=== PATIENT | female | born 1945 | race American Indian/Alaskan Native ===

== ENCOUNTER 2018-01-30 19:03 | Inpatient (IN) | payer MEDICARE ==
[~2018-01-30] VITALS: Ht 157.5 cm; Wt 80.0 kg
[~2018-01-30 19:03] MED LIST: ALBU90OI INH; ASPI81EC PO; CITA10S PO; HYDGUAL120 PO; IBUP800 PO; LISHYD2025 PO; PRED20 PO; RXSULTRIDS PO; SULTRIDS PO
[2018-01-30 20:33] LABS: Hemoglobin 18.6 g/dL (11.5-16.0); Mean Corpuscular HGB 34.8 pg (26.0-34.0); Mean Corpuscular HGB Conc 34.4 g/dL (31.5-36.5); Mean Corpuscular Volume 101 fL (80-100); Platelet Count 110 K/mm3 (150-400); RDW Coefficient Variation 13.2 % (11.7-14.2); RDW Standard Deviation 49.2 fL (35.1-46.3); Red Blood Cell Count 5.34 M/mm3 (3.80-5.20); White Blood Cell Count 8.95 K/mm3 (4.00-11.30)
[2018-01-30 20:52] LABS: Alanine Aminotransfer (ALT/SGP 12 U/L (12-78); Albumin, Blood 3.6 g/dL (3.4-5.0); Albumin/Globulin Ratio 1.2 (0.8-1.8); Alk Phos 86 U/L (50-136); Anion Gap 7 mmol/L (6-16); Aspartate Aminotrans (AST/SGOT 21 U/L (12-37); Blood Urea Nitrogen 18 mg/dL (8-24); CO2, Blood 29 mmol/L (21-32); Calcium, Blood 8.6 mg/dL (8.5-10.1); Chloride, Blood 99 mmol/L (98-108); Creatinine, Blood 0.51 mg/dL (0.40-1.00); Glomerular Filtration Rate >60 (60-); Glucose, Blood 107 mg/dL (70-99); Potassium, Blood 4.2 mmol/L (3.5-5.5); Sodium, Blood 135 mmol/L (136-145); Total Protein, Blood 6.6 g/dL (6.4-8.2)
[2018-01-30 21:00] LABS: BAND PERCENT MAN 14 % (0-8); BASOPHILS PERCENT MAN 0 % (0-2); EOSINOPHILS ABSOLUTE MAN 0.08 K/mm3 (0.00-0.68); EOSINOPHILS PERCENT MAN 1 % (0-6); LYMPHOCYTES ABSOLUTE MAN 0.35 K/mm3 (0.84-5.20); LYMPHOCYTES PERCENT MAN 4 % (21-46); MONOCYTES ABSOLUTE MAN 0.17 K/mm3 (0.16-1.47); MONOCYTES PERCENT MAN 2 % (4-13); NEUTROPHILS ABSOLUTE MAN 8.32 K/mm3 (1.96-9.15); SEG NEUTROPHILS PERCENT MAN 79 % (41-73); TOTAL CELLS COUNTED 100
[2018-01-30 21:24] LABS: International Normalized Ratio 1.02; Prothrombin Time Results 10.5 Sec (9.7-11.5)
[2018-01-31 00:38] LABS: Source, Urine Catheter
[2018-01-31 00:41] LABS: Bilirubin, Urine Neg (Neg); Blood, Urine 1+ (Neg); Glucose Qualitative, Urine Neg (Neg); Ketones, Urine 1+ (Neg); Leukocyte Esterase, Urine 2+ (Neg); Nitrite, Urine Pos (Neg); Protein, Urine 1+ (Neg); Urobilinogen, Urine 2+ (Normal)
[2018-01-31 00:51] LABS: Appearance, Urine Hazy (Clear); Bacteria Many /hpf; Color, Urine Yellow (P-Yellow); Red Blood Cells, Urine Rare /hpf (0-2); Squamous Epithelial Cells Rare /hpf (Few); White Blood Cells, Urine 25-50 /hpf (0-5)
[2018-01-31 04:07] LABS: BASOPHILS ABSOLUTE AUTO 0.01 K/mm3 (0.00-0.23); BASOPHILS PERCENT AUTO 0 % (0-2); EOSINOPHILS PERCENT AUTO 0 % (0-6); Hemoglobin 18.2 g/dL (11.5-16.0); IMMATURE GRAN ABSOLUTE AUTO 0.02 K/mm3 (0.00-0.10); IMMATURE GRAN PERCENT AUTO 0 % (0-1); LYMPHOCYTES ABSOLUTE AUTO 0.61 K/mm3 (0.84-5.20); LYMPHOCYTES PERCENT AUTO 10 % (21-46); MONOCYTES ABSOLUTE AUTO 0.27 K/mm3 (0.16-1.47); MONOCYTES PERCENT AUTO 4 % (4-13); Mean Corpuscular HGB 34.4 pg (26.0-34.0); Mean Corpuscular HGB Conc 33.7 g/dL (31.5-36.5); Mean Corpuscular Volume 102 fL (80-100); Mean Platelet Volume 9.8 fL (9.1-12.4); NEUTROPHILS ABSOLUTE AUTO 5.21 K/mm3 (1.96-9.15); NEUTROPHILS PERCENT AUTO 85 % (41-73); Platelet Count 112 K/mm3 (150-400); RDW Standard Deviation 49.3 fL (35.1-46.3); Red Blood Cell Count 5.29 M/mm3 (3.80-5.20); White Blood Cell Count 6.12 K/mm3 (4.00-11.30)
[2018-01-31 04:27] LABS: Anion Gap 9 mmol/L (6-16); Blood Urea Nitrogen 17 mg/dL (8-24); Bun/Creatinine Ratio 33.1 (12.0-20.0); CO2, Blood 28 mmol/L (21-32); Calcium, Blood 8.3 mg/dL (8.5-10.1); Chloride, Blood 100 mmol/L (98-108); Creatinine, Blood 0.51 mg/dL (0.40-1.00); Glomerular Filtration Rate >60 (60-); Glucose, Blood 109 mg/dL (70-99); Potassium, Blood 4.1 mmol/L (3.5-5.5); Sodium, Blood 137 mmol/L (136-145)
[2018-01-31 13:22] LABS: Hematocrit 54.9 % (33.0-51.0); Hemoglobin 18.3 g/dL (11.5-16.0)
[2018-02-01 04:41] LABS: BASOPHILS ABSOLUTE AUTO 0.01 K/mm3 (0.00-0.23); BASOPHILS PERCENT AUTO 0 % (0-2); EOSINOPHILS ABSOLUTE AUTO 0.06 K/mm3 (0.00-0.68); EOSINOPHILS PERCENT AUTO 1 % (0-6); Hematocrit 40.7 % (33.0-51.0); Hemoglobin 13.4 g/dL (11.5-16.0); IMMATURE GRAN ABSOLUTE AUTO 0.02 K/mm3 (0.00-0.10); IMMATURE GRAN PERCENT AUTO 0 % (0-1); LYMPHOCYTES ABSOLUTE AUTO 1.27 K/mm3 (0.84-5.20); LYMPHOCYTES PERCENT AUTO 19 % (21-46); MONOCYTES ABSOLUTE AUTO 0.49 K/mm3 (0.16-1.47); MONOCYTES PERCENT AUTO 8 % (4-13); Mean Corpuscular HGB 34.9 pg (26.0-34.0); Mean Corpuscular HGB Conc 32.9 g/dL (31.5-36.5); Mean Platelet Volume 9.7 fL (9.1-12.4); NEUTROPHILS ABSOLUTE AUTO 4.69 K/mm3 (1.96-9.15); NEUTROPHILS PERCENT AUTO 72 % (41-73); Platelet Count 92 K/mm3 (150-400); RDW Coefficient Variation 13.3 % (11.7-14.2); Red Blood Cell Count 3.84 M/mm3 (3.80-5.20); White Blood Cell Count 6.54 K/mm3 (4.00-11.30)
[2018-02-01 04:43] LABS: Mean Corpuscular Volume 106 fL (80-100)
[2018-02-01 04:58] LABS: Anion Gap 5 mmol/L (6-16); Blood Urea Nitrogen 15 mg/dL (8-24); Bun/Creatinine Ratio 25.4 (12.0-20.0); CO2, Blood 30 mmol/L (21-32); Calcium, Blood 7.6 mg/dL (8.5-10.1); Chloride, Blood 104 mmol/L (98-108); Creatinine, Blood 0.59 mg/dL (0.40-1.00); Glomerular Filtration Rate >60 (60-); Glucose, Blood 104 mg/dL (70-99); Potassium, Blood 4.3 mmol/L (3.5-5.5); Sodium, Blood 139 mmol/L (136-145)
[2018-02-01 08:17] LABS: PCO2 Arterial 61.1 mmHg (35-45); PO2 Arterial 77.3 mmHg (80-100); pH Blood Arterial 7.32 (7.35-7.45)
[2018-02-02 07:07] LABS: BASOPHILS ABSOLUTE AUTO 0.02 K/mm3 (0.00-0.23); BASOPHILS PERCENT AUTO 0 % (0-2); EOSINOPHILS ABSOLUTE AUTO 0.13 K/mm3 (0.00-0.68); EOSINOPHILS PERCENT AUTO 3 % (0-6); Hematocrit 38.7 % (33.0-51.0); IMMATURE GRAN ABSOLUTE AUTO 0.02 K/mm3 (0.00-0.10); IMMATURE GRAN PERCENT AUTO 0 % (0-1); LYMPHOCYTES ABSOLUTE AUTO 0.99 K/mm3 (0.84-5.20); LYMPHOCYTES PERCENT AUTO 20 % (21-46); MONOCYTES ABSOLUTE AUTO 0.43 K/mm3 (0.16-1.47); MONOCYTES PERCENT AUTO 9 % (4-13); Mean Corpuscular HGB 34.9 pg (26.0-34.0); Mean Corpuscular HGB Conc 33.6 g/dL (31.5-36.5); Mean Corpuscular Volume 104 fL (80-100); Mean Platelet Volume 9.9 fL (9.1-12.4); NEUTROPHILS ABSOLUTE AUTO 3.47 K/mm3 (1.96-9.15); NEUTROPHILS PERCENT AUTO 69 % (41-73); Platelet Count 97 K/mm3 (150-400); RDW Coefficient Variation 12.9 % (11.7-14.2); RDW Standard Deviation 49.6 fL (35.1-46.3); Red Blood Cell Count 3.72 M/mm3 (3.80-5.20); White Blood Cell Count 5.06 K/mm3 (4.00-11.30)
[2018-02-02 07:16] LABS: Anion Gap 5 mmol/L (6-16); Blood Urea Nitrogen 10 mg/dL (8-24); Bun/Creatinine Ratio 20.3 (12.0-20.0); CO2, Blood 32 mmol/L (21-32); Calcium, Blood 8.1 mg/dL (8.5-10.1); Chloride, Blood 101 mmol/L (98-108); Creatinine, Blood 0.49 mg/dL (0.40-1.00); Glomerular Filtration Rate >60 (60-); Glucose, Blood 89 mg/dL (70-99); Potassium, Blood 4.1 mmol/L (3.5-5.5); Sodium, Blood 138 mmol/L (136-145)
[2018-02-03 04:21] LABS: BASOPHILS ABSOLUTE AUTO 0.01 K/mm3 (0.00-0.23); BASOPHILS PERCENT AUTO 0 % (0-2); EOSINOPHILS ABSOLUTE AUTO 0.22 K/mm3 (0.00-0.68); EOSINOPHILS PERCENT AUTO 5 % (0-6); Hematocrit 35.9 % (33.0-51.0); Hemoglobin 11.9 g/dL (11.5-16.0); IMMATURE GRAN ABSOLUTE AUTO 0.01 K/mm3 (0.00-0.10); IMMATURE GRAN PERCENT AUTO 0 % (0-1); LYMPHOCYTES ABSOLUTE AUTO 0.86 K/mm3 (0.84-5.20); LYMPHOCYTES PERCENT AUTO 18 % (21-46); MONOCYTES ABSOLUTE AUTO 0.45 K/mm3 (0.16-1.47); MONOCYTES PERCENT AUTO 9 % (4-13); Mean Corpuscular HGB 34.7 pg (26.0-34.0); Mean Corpuscular HGB Conc 33.1 g/dL (31.5-36.5); Mean Corpuscular Volume 105 fL (80-100); Mean Platelet Volume 9.4 fL (9.1-12.4); NEUTROPHILS ABSOLUTE AUTO 3.34 K/mm3 (1.96-9.15); NEUTROPHILS PERCENT AUTO 68 % (41-73); Platelet Count 104 K/mm3 (150-400); RDW Coefficient Variation 12.8 % (11.7-14.2); RDW Standard Deviation 49.2 fL (35.1-46.3); Red Blood Cell Count 3.43 M/mm3 (3.80-5.20); White Blood Cell Count 4.89 K/mm3 (4.00-11.30)
[2018-02-03 04:53] LABS: Anion Gap 3 mmol/L (6-16); Blood Urea Nitrogen 10 mg/dL (8-24); Bun/Creatinine Ratio 21.4 (12.0-20.0); CO2, Blood 36 mmol/L (21-32); Calcium, Blood 8.1 mg/dL (8.5-10.1); Chloride, Blood 98 mmol/L (98-108); Creatinine, Blood 0.47 mg/dL (0.40-1.00); Glomerular Filtration Rate >60 (60-); Glucose, Blood 125 mg/dL (70-99); Potassium, Blood 3.8 mmol/L (3.5-5.5); Sodium, Blood 137 mmol/L (136-145)
== END 2018-02-03 16:01 | disposition home or self-care (01) | DRG 470 ==
LOC: ER 19:03 → SURS 22:49
PROVIDERS: Emergency Medicine; Internal Medicine; Orthopaedic Surgery
PROC: 0SRB049 Replacement of Left Hip Joint with Ceramic on Polyethylene Synthetic Substitute, Cemented, Open Approach (ICD-10-PCS; principal; 2018-01-31 13:30)
DX: S72.012A Unspecified intracapsular fracture of left femur, initial encounter for closed fracture (principal); W18.09XA Striking against other object with subsequent fall, initial encounter; I10 Essential (primary) hypertension; L40.9 Psoriasis, unspecified; D75.1 Secondary polycythemia; F32.9 Major depressive disorder, single episode, unspecified; D69.6 Thrombocytopenia, unspecified; M19.049 Primary osteoarthritis, unspecified hand; M19.019 Primary osteoarthritis, unspecified shoulder; M47.9 Spondylosis, unspecified; R09.02 Hypoxemia; F17.200 Nicotine dependence, unspecified, uncomplicated; Z88.5 Allergy status to narcotic agent; Z79.1 Long term (current) use of non-steroidal anti-inflammatories (NSAID); Z79.82 Long term (current) use of aspirin; Z79.899 Other long term (current) drug therapy
CPT/HCPCS: 36415; 36600; 71045; 71046; 72170; 73502; 80048; 80053; 81001; 82803; 85014; 85018; 85025; 85610; 86850; 86900; 86901; 87077; 87086; 87186; 93005; 93010; 93971; 94640; 94760; 94761; 94762; 96361; 96374; 96375; 97110; 97116; 97161; 97530; 99285-25; C1713; C1776; G8978; G8979; J0171; J0690; J0735; J1644; J1885; J2250; J2370; J2405; J2795; J3010; J7030; J7120

== ENCOUNTER 2019-01-12 19:45 | Emergency (ER) | payer OTHER ==
[~2019-01-12] VITALS: Ht 162.6 cm; Wt 68.0 kg
[2019-01-12] MEDS ORDERED: Norco 5-325 Ta1 EACH PO (21:01)
== END 2019-01-12 21:13 | disposition home or self-care (01) ==
LOC: ER 19:45
DX: S42.251A Displaced fracture of greater tuberosity of right humerus, initial encounter for closed fracture (principal); S42.211A Unspecified displaced fracture of surgical neck of right humerus, initial encounter for closed fracture; W18.42XA Slipping, tripping and stumbling without falling due to stepping into hole or opening, initial encounter; Z88.5 Allergy status to narcotic agent; Z79.899 Other long term (current) drug therapy; Z79.82 Long term (current) use of aspirin; I10 Essential (primary) hypertension; F32.9 Major depressive disorder, single episode, unspecified; F17.200 Nicotine dependence, unspecified, uncomplicated
CPT/HCPCS: 29105; 73030; 99283-25; A9270

== ENCOUNTER 2020-10-05 21:29 | Inpatient (IN) | payer MEDICARE, OTHER ==
[~2020-10-05] VITALS: Ht 152.4 cm; Wt 72.9 kg
[~2020-10-05 21:29] MED LIST changes: +Norco 5-325 Ta1 EACH PO
[2020-10-05] MEDS ORDERED: LOSA25 PO (21:49)
[2020-10-05 22:35] LABS: BASOPHILS ABSOLUTE AUTO 0.03 K/mm3 (0.00-0.23); BASOPHILS PERCENT AUTO 0 % (0-2); EOSINOPHILS ABSOLUTE AUTO 0.07 K/mm3 (0.00-0.68); EOSINOPHILS PERCENT AUTO 1 % (0-6); Hematocrit 49.7 % (33.0-51.0); Hemoglobin 16.7 g/dL (11.5-16.0); IMMATURE GRAN ABSOLUTE AUTO 0.05 K/mm3 (0.00-0.10); IMMATURE GRAN PERCENT AUTO 0 % (0-1); LYMPHOCYTES PERCENT AUTO 10 % (21-46); MONOCYTES ABSOLUTE AUTO 0.67 K/mm3 (0.16-1.47); MONOCYTES PERCENT AUTO 6 % (4-13); Mean Corpuscular HGB 33.8 pg (26.0-34.0); Mean Corpuscular HGB Conc 33.6 g/dL (31.5-36.5); Mean Corpuscular Volume 101 fL (80-100); Mean Platelet Volume 9.4 fL (9.1-12.4); NEUTROPHILS ABSOLUTE AUTO 9.62 K/mm3 (1.96-9.15); NEUTROPHILS PERCENT AUTO 83 % (41-73); Platelet Count 143 K/mm3 (150-400); RDW Coefficient Variation 13.2 % (11.7-14.2); Red Blood Cell Count 4.94 M/mm3 (3.80-5.20); White Blood Cell Count 11.54 K/mm3 (4.00-11.30)
[2020-10-05 22:51] LABS: Alanine Aminotransfer (ALT/SGP 14 U/L (12-78); Albumin, Blood 3.5 g/dL (3.4-5.0); Albumin/Globulin Ratio 1.1 (0.8-1.8); Alk Phos 80 U/L (50-136); Anion Gap 3 mmol/L (6-16); Aspartate Aminotrans (AST/SGOT 15 U/L (12-37); Bilirubin, Total 0.5 mg/dL (0.1-1.0); Blood Urea Nitrogen 20 mg/dL (8-24); CO2, Blood 33 mmol/L (21-32); Calcium, Blood 8.4 mg/dL (8.5-10.1); Chloride, Blood 98 mmol/L (98-108); Creatinine, Blood 0.71 mg/dL (0.40-1.00); Globulin, Blood 3.2 g/dL (2.2-4.0); Glomerular Filtration Rate >60 (60-); Glucose, Blood 103 mg/dL (70-99); Potassium, Blood 3.7 mmol/L (3.5-5.5); Sodium, Blood 134 mmol/L (136-145); Total Protein, Blood 6.7 g/dL (6.4-8.2)
--- NOTE | 2020-10-06 02:34 | NUR ---
SURGICAL ADMIT PT BROUGHT TO RM 221 BY VERONA FROM ER @ 0130. PT SLID OVER FROM [facility] TO SURGICAL BED BY 4 STAFF MEMBERS. PT A&O X4. BP ELEVATED, OTHERWISE VSS. BP MEDICATED W/ PRN IV HYDRALAZINE PER EMAR W/ IMPROVEMENT. PT C/O R HIP PAIN, MEDICATED W/ PRN IV FENTANYL PER EMAR W/ PT THEN DENYING PAIN POST TREATMENT. SPO2 > 92% ON 3L NC. PT REPORTS RA @ BASELINE. PT NPO. WILL CONTINUE TO MONITOR & PROVIDE CARE.
[2020-10-06 02:54] LABS: SARS-Cov-2 (COVID-19) PCR, MMC NEGATIVE (NEGATIVE)
[2020-10-06 04:35] LABS: BASOPHILS ABSOLUTE AUTO 0.02 K/mm3 (0.00-0.23); BASOPHILS PERCENT AUTO 0 % (0-2); EOSINOPHILS ABSOLUTE AUTO 0.01 K/mm3 (0.00-0.68); EOSINOPHILS PERCENT AUTO 0 % (0-6); Hematocrit 51.1 % (33.0-51.0); Hemoglobin 17.2 g/dL (11.5-16.0); IMMATURE GRAN ABSOLUTE AUTO 0.05 K/mm3 (0.00-0.10); IMMATURE GRAN PERCENT AUTO 1 % (0-1); LYMPHOCYTES ABSOLUTE AUTO 0.78 K/mm3 (0.84-5.20); LYMPHOCYTES PERCENT AUTO 8 % (21-46); MONOCYTES PERCENT AUTO 6 % (4-13); Mean Corpuscular HGB 33.9 pg (26.0-34.0); Mean Corpuscular HGB Conc 33.7 g/dL (31.5-36.5); Mean Corpuscular Volume 101 fL (80-100); Mean Platelet Volume 9.6 fL (9.1-12.4); NEUTROPHILS PERCENT AUTO 85 % (41-73); Platelet Count 139 K/mm3 (150-400); RDW Coefficient Variation 13.2 % (11.7-14.2); RDW Standard Deviation 49.4 fL (35.1-46.3); Red Blood Cell Count 5.08 M/mm3 (3.80-5.20); White Blood Cell Count 9.76 K/mm3 (4.00-11.30)
[2020-10-06 05:04] LABS: Alanine Aminotransfer (ALT/SGP 11 U/L (12-78); Albumin, Blood 3.6 g/dL (3.4-5.0); Albumin/Globulin Ratio 1.1 (0.8-1.8); Alk Phos 78 U/L (50-136); Anion Gap 5 mmol/L (6-16); Aspartate Aminotrans (AST/SGOT 15 U/L (12-37); Bilirubin, Total 0.7 mg/dL (0.1-1.0); Blood Urea Nitrogen 19 mg/dL (8-24); Bun/Creatinine Ratio 31.4 (12.0-20.0); CO2, Blood 30 mmol/L (21-32); Calcium, Blood 8.5 mg/dL (8.5-10.1); Chloride, Blood 98 mmol/L (98-108); Creatinine, Blood 0.61 mg/dL (0.40-1.00); Globulin, Blood 3.2 g/dL (2.2-4.0); Glomerular Filtration Rate >60 (60-); Glucose, Blood 123 mg/dL (70-99); Potassium, Blood 3.8 mmol/L (3.5-5.5); Sodium, Blood 133 mmol/L (136-145); Total Protein, Blood 6.8 g/dL (6.4-8.2)
--- NOTE | 2020-10-06 05:47 | NUR ---
SHIFT SUMMARY PT CONTINUES TO BE A&O X4. VSS. SPO2 > 92% ON 3L NC TIRTATED TO RA. PT's R HIP PAIN MEDICATED W/ PRN IV FENTANYL X2 THIS SHIFT W/ PT REPORT OF IMPROVEMENT. PT NPO, AWAITING SURGICAL CONSULT TODAY. NS GTT X1 INFUSING PER ORDERS. NO EVENTS OVER NIGHT. WILL CONTINUE TO MONITOR & PROVIDE CARE UNTIL REPORT OFF TO DAY SHIFT RN.
--- NOTE | 2020-10-06 13:15 | NUR ---
PT TO OR AT 1315.
--- NOTE | 2020-10-06 13:58 | NUR ---
History, Chart, Medications and Allergies reviewed before start of procedure. Lungs clear T/O to Auscultation. Patient confirms NPO status and agrees with scheduled surgery. Pre-Op teaching done. Pt verbalizes understanding. WITH LEN BRIGGS ORIENTING PT HAS PERIPAD IN PLACE UNDER PANIS FOR YEAST RASH RED WITHOUT DRAINAGE
--- NOTE | 2020-10-06 16:51 | NUR ---
PT BACK TO ROOM FROM PACU AT ABOUT 1645. PT IS A/O, DROWSY. USING BIPAP SET UP BY RT IN PACU. DRESSING TO R HIP CDI. PT'S NOTIFIED, STATES HE WILL COME IN TO SEE HER.
--- NOTE | 2020-10-06 17:32 | NUR ---
SHIFT SUMMARY PT HAS BEEN ALERT, FORGETFUL AT TIMES. PT IS S/P R HIP NAILING TODAY. HAS BEEN RESTING IN BED SINCE SURGERY. PT IS PAINFUL BUT DROWSY POST-OP. SWITCHED FROM BIPAP TO OXYMIZER PER RT. IS AT BEDSIDE. PT RESTING AT THIS TIME.
--- NOTE | 2020-10-07 04:19 | NUR ---
SHIFT SUMMARY: PT POD#1 FOR R HIP NAILING. DRESSINGS TO RT HIP C/D/I WITHOUT VISIBLE DRG. PT HYPERTENSIVE THIS SHIFT AND MEDICATED WITH HYDRALAZINE THIS AM PER EMAR. PT WEANED FROM 11L02 VIA OXYMIZER TO 4L02. LUNGS CLEAR THROUGHOUT. PULSE OX AT BEDSIDE. PT HAS BEEN DROWSY POSTOP AND REPORTS FEELING "LOOPY". PT HAS ALSO BEEN NAUSEATED SINCE SURGERY WITH EMESIS X2. MEDICATED WITH ZOFRAN SEVERAL TIMES PER EMAR. PT HAVING A DIFFICULT TIME SLEEPING THROUGHOUT NIGHT R/T BACK PAIN. KPAD PLACED TO UPPER BACK FOR COMFORT. PT MEDICATED WITH TYLENOL AND TORADOL FOR PAIN. MINIMAL PO INTAKE R/T NAUSEA. IVF INFUSING PER ORDERS. PT INCONTINENT THIS SHIFT WHICH SHE REPORTS IS BASELINE FOR HER. PLAN FOR PT TO WORK WITH PT/OT TODAY.
[2020-10-07 04:33] LABS: Hematocrit 43.8 % (33.0-51.0); Hemoglobin 14.6 g/dL (11.5-16.0); Mean Corpuscular HGB 33.4 pg (26.0-34.0); Mean Corpuscular HGB Conc 33.3 g/dL (31.5-36.5); Mean Corpuscular Volume 100 fL (80-100); Mean Platelet Volume 10.2 fL (9.1-12.4); Platelet Count 114 K/mm3 (150-400); RDW Coefficient Variation 13.1 % (11.7-14.2); RDW Standard Deviation 49.3 fL (35.1-46.3); Red Blood Cell Count 4.37 M/mm3 (3.80-5.20)
[2020-10-07 04:54] LABS: Anion Gap 5 mmol/L (6-16); Blood Urea Nitrogen 26 mg/dL (8-24); Bun/Creatinine Ratio 40.9 (12.0-20.0); CO2, Blood 30 mmol/L (21-32); Calcium, Blood 7.9 mg/dL (8.5-10.1); Chloride, Blood 99 mmol/L (98-108); Creatinine, Blood 0.64 mg/dL (0.40-1.00); Glomerular Filtration Rate >60 (60-); Glucose, Blood 200 mg/dL (70-99); Magnesium, Blood 1.9 mg/dL (1.6-2.4); Potassium, Blood 3.8 mmol/L (3.5-5.5); Sodium, Blood 134 mmol/L (136-145)
[2020-10-07 05:00] LABS: BAND PERCENT MAN 15 % (0-8); BASOPHILS PERCENT MAN 0 % (0-2); EOSINOPHILS PERCENT MAN 0 % (0-6); LYMPHOCYTES ABSOLUTE MAN 0.12 K/mm3 (0.84-5.20); LYMPHOCYTES PERCENT MAN 1 % (21-46); METAMYELOCYTE ABSOLUTE MAN 0.12 K/mm3 (0.00-0.00); METAMYELOCYTE PERCENT MAN 1 % (0-0); MONOCYTES ABSOLUTE MAN 0.61 K/mm3 (0.16-1.47); MONOCYTES PERCENT MAN 5 % (4-13); NEUTROPHILS ABSOLUTE MAN 11.43 K/mm3 (1.96-9.15); SEG NEUTROPHILS PERCENT MAN 78 % (41-73); TOTAL CELLS COUNTED 100
--- NOTE | 2020-10-07 10:10 | NUR ---
PT HAS BEEN A/O X4, BUT DRIFTING OFF TO SLEEP DURING CONVERSATIONS, HAD DIFFICULTY SWALLOWING PILLS, ETC. SPOKE WITH DR PATEL REGARDING PT'S MENTATION. NO NEW ORDERS AT THIS TIME.
[2020-10-07 15:50] LABS: Source, Urine Clean Catch
[2020-10-07 16:09] LABS: Appearance, Urine Clear (Clear); Bilirubin, Urine Neg (Neg); Blood, Urine 1+ (Neg); Color, Urine Amber (P-Yellow); Glucose Qualitative, Urine Neg (Neg); Ketones, Urine 1+ (Neg); Leukocyte Esterase, Urine 1+ (Neg); Nitrite, Urine Pos (Neg); Protein, Urine 2+ (Neg); Urobilinogen, Urine NORM (Normal)
[2020-10-07 17:02] LABS: Amorphous Light (0-Heavy); Bacteria Few /hpf; Hyaline Casts 0-2 /lpf (0-2); Mucus Light (0-Heavy); Squamous Epithelial Cells Few /hpf (Few)
--- NOTE | 2020-10-07 17:30 | NUR ---
SHIFT SUMMARY PT HAS BEEN DROWSY TODAY BUT ORIENTED X4. DISCUSSED WITH PHYSICIAN. PT HAS REOPRTED COMFORT AT REST; MEDICATED WITH TORADOL X1 - AVOIDING NARCOTICS D/T MENTATION. PT WAS ONLY ABLE TO SWALLOW SMALL PILLS THIS MORNING WITH APPLESAUCE. PT HAS HAD RENTENTION TODAY AND REQUIRED STRAIGHT CATH THIS AFTERNOON WITH 650ML OUT. PT RESTING AT THIS TIME, BED ALARM ON.
--- NOTE | 2020-10-07 22:45 | NUR ---
UPON INITIAL ASSESSMENT PATIENT NOTED TO BE SOMNOLENT AND FALLING ASLEEP DURING CONVERSATION. SPEECH INCOMPRHENSABLE AND NONSENSICAL. PT DISORIENTED TO PLACE AND EVENT. ORIENTED TO SELF ONLY. PT INTERMITTENTLY ABLE TO REPORT THAT SHE WAS HAVING A DIFFICULT TIME FORMULATING WORDS, STATING "I DON'T KNOW WHY I CAN'T SPEAK", APPEARING FRUSTURATED. PUPILS EQUAL AND REACTIVE, HOWEVER SLUGGISH. PT UNABLE TO FOLLOW MAJORITY OF COMMANDS SUCH RAISING BILATERAL ARMS AND SQUEEZING HAND SUPPLY CHAIN TECH. PT ABLE TO SMILE ONCE WITH TEETH WHICH DID NOT APPEAR TO HAVE A SIGNIFICANT DROOP. PT UNABLE TO ANSWER QUESTIONS REGARDING SENSATION, HOWEVER DID RESPOND TO PAIN TO BLE. DR. SHINE NOTIFIED AT APPROX 2019 WITH NEW ORDER FOR STAT HEAD CT. DR. SHINE IN ROOM TO ASSESS PT AT APPROX 0. SEE NEW ORDERS.
--- NOTE | 2020-10-08 06:40 | NUR ---
PT CONTINUES TO BE DROWSY THIS MORNING. SLOW TO RESPOND BUT ABLE TO ANSWER QUESTIONS. ALERT TO SELF, EVENT AND PLACE. SPEECH HAS MADE A LITTLE PROGRESS PT IS ABLE TO SPEAK IN SENTENCES. HOWEVER, PT NOW APPEARS TO BE HALLUCINATING SHE ASKS "DO YOU SEE THAT DOG OVER THERE?" WHILE POINTING AT THE WALL. PT HAS ONLY BEEN MEDICATED WITH TYLENOL THIS SHIFT PER EMAR. PT UNABLE TO VOID THIS SHIFT, REQUIRING A STRAIGHT CATH FOR A TOTAL OF 375CC OUT. IVF INFUSING PER EMAR. PT NOW NPO. PLAN FOR SPEECH EVAL LATER TODAY.
--- NOTE | 2020-10-08 19:13 | NUR ---
Called to assess pt. pt is full code day two post op from femur repair. pt slurred in speech and wide eyed. bobbi garlandtles pt dusky. deniew heacadhe blurered vision or ringing in ears. grmicing unblae to smile. Pt beig worked upfor embolic event. pt recely quit smoking and has been falling. unable to find any history of carrdiac workup did have carotid scan not tox screen drawn Assisted in sparrow placement. Nursing monitoring vitals closely suggest frequent neuro checks. 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 ursula smith monitor for neuro, withdrawls and chest pain closely. pt kps scale is 30% post surgical. will obtain advance directive and polst whe family available.
--- NOTE | 2020-10-08 19:26 | NUR ---
SHIFT SUMMARY POD #2 FOR R HIP NAILING. ALTERED MENTAL STATUS AND R SIDE FLACCIDITY NOTED THIS SHIFT. PHYSICIAN MADE AWARE. PT UNABLE TO PARTICIPATE IN PHYSICAL THERAPY AND SWALLOW EVAL DUE TO ALTERED MENTAL STATUS. PT MADE NPO DUE TO FINDINGS IN SPEECH EVAL. PT TO HAVE MEDS CRUSHED IN APPLESAUCE PENDING THAT THEY ARE ALERT ENOUGH TO TAKE THEM. PT FOUND TO BE RETAINING URINE AND A NOYOLA WAS PLACED. REPEAT HEAD AND NECK CT DONE THIS SHIFT. CURRENTLY ON 3 LITERS O2 VIA NC. NORMAL SINUS ON TELE. VSS. REPORT GIVEN TO ONCOMING RN.
--- NOTE | 2020-10-09 06:12 | NUR ---
SHIFT SUMMARY POD3 R HIP NAILING. PT MENTAL STATUS HAS IMPROVED. PT ANSWERS QUESTION APPROPRIATELY BUT OCCASIONALLY NONSENSICAL. R SIDE FLACCIDITY HAS IMPROVED. PT STARTED TO MAKE SOME MOV'T ON HER R SIDE ARM/HAND BUT REMAIN TO UNABLE TO OYSTER HARVESTER ON BOTH HANDS. PT REPORT PAIN, MOANING. PAIN MANAGED WITH 25 FENTANYL X1 AND TYLENOL SUPPOSITORY AND REPOSITIONING. SUCTION AND ORAL CARE Q4. PT STATES SHE FEELS BETTER TODAY, SLEPT MOST OF THE NIGHT. I ALSO DID A PARTIAL BED BATH. SHE WAS ON 3L O2 LAST NIGHT, DESATS TO 85-90%, INCREASED TO 4L AT NIGHT. RT ATTEMPT TO PLACED A CPAP AT SLEEP BUT PT STS SHE IS NAUSEATED. ADMINISTERED ZOFRAN X1 VIA IV. FLUIDS INFUSING, ABX WAS ADMINSTERED LAST NIGHT WELL. PT'S FAMILY CALLED LAST NIGHT. THEY PLAN TO COME IN THIS AM TO SPEAK TO THE PHYSICIAN AND WANTED TO BECOME INVOLVE WITH CARE. CALL LIGHT WITHIN REACH. PT IS SLEEPING COMFORTABLE IN BED AT THIS TIME. BED IN LOW POSITION.
[2020-10-09 08:34] LABS: Hematocrit 31.4 % (33.0-51.0); Hemoglobin 10.4 g/dL (11.5-16.0); Mean Corpuscular HGB 33.8 pg (26.0-34.0); Mean Corpuscular HGB Conc 33.1 g/dL (31.5-36.5); Mean Corpuscular Volume 102 fL (80-100); Mean Platelet Volume 10.1 fL (9.1-12.4); Platelet Count 137 K/mm3 (150-400); RDW Coefficient Variation 13.3 % (11.7-14.2); RDW Standard Deviation 49.9 fL (35.1-46.3); Red Blood Cell Count 3.08 M/mm3 (3.80-5.20); White Blood Cell Count 7.82 K/mm3 (4.00-11.30)
[2020-10-09 08:49] LABS: Anion Gap 0 mmol/L (6-16); Blood Urea Nitrogen 16 mg/dL (8-24); Bun/Creatinine Ratio 32.2 (12.0-20.0); CO2, Blood 35 mmol/L (21-32); Calcium, Blood 8.3 mg/dL (8.5-10.1); Chloride, Blood 102 mmol/L (98-108); Glomerular Filtration Rate >60 (60-); Glucose, Blood 126 mg/dL (70-99); Potassium, Blood 4.4 mmol/L (3.5-5.5); Sodium, Blood 137 mmol/L (136-145)
--- NOTE | 2020-10-09 09:39 | NUR ---
ECHO IN ROOM.
--- NOTE | 2020-10-09 10:34 | NUR ---
Echocardiogram completed.
--- NOTE | 2020-10-09 14:42 | NUR ---
pt visiting w/spouse.
--- NOTE | 2020-10-09 16:59 | NUR ---
SUMMARY PT ALERT AND APPEARS ORIENTED. SLOW TO RESPOND AT TIMES. RIGHT SIDED WEAKNESS STILL PRESENT. PT ABLE TO SWALLOW PILLS CRUSHED IN APPLESAUCE THIS AM W/PROMPTING. NO COUGHING OR POCKETING NOTED AFTERWARD. ORAL CARE PERFORMED. PT DENIES PAIN, STATING RLE "SORE", NOT PAINFUL. DAUGHTER IN LAW IN THIS AM TO SEE PT AND SPOUSE IN THIS AFTERNOON. IV FLUIDS INFUSING PER ORDERS.
[2020-10-10 04:41] LABS: Hemoglobin 9.3 g/dL (11.5-16.0); Mean Corpuscular HGB 34.2 pg (26.0-34.0); Mean Corpuscular HGB Conc 33.2 g/dL (31.5-36.5); Mean Corpuscular Volume 103 fL (80-100); Mean Platelet Volume 10.1 fL (9.1-12.4); Platelet Count 141 K/mm3 (150-400); RDW Coefficient Variation 13.2 % (11.7-14.2); RDW Standard Deviation 49.6 fL (35.1-46.3); Red Blood Cell Count 2.72 M/mm3 (3.80-5.20); White Blood Cell Count 5.14 K/mm3 (4.00-11.30)
[2020-10-10 04:57] LABS: Anion Gap 1 mmol/L (6-16); Blood Urea Nitrogen 10 mg/dL (8-24); Bun/Creatinine Ratio 19.9 (12.0-20.0); CO2, Blood 34 mmol/L (21-32); Calcium, Blood 8.1 mg/dL (8.5-10.1); Chloride, Blood 102 mmol/L (98-108); Glomerular Filtration Rate >60 (60-); Glucose, Blood 100 mg/dL (70-99); Magnesium, Blood 2.2 mg/dL (1.6-2.4); Potassium, Blood 4.5 mmol/L (3.5-5.5); Sodium, Blood 137 mmol/L (136-145)
--- NOTE | 2020-10-10 05:45 | NUR ---
POD 4 S/P R HIP NAILING. PT VSS T/O NIGHT. SATS 93-96% ON 3LO2 NC; PT REMOVED CANNULA, SATS DROPPED TO 84% ON RA. PT REFUSED BIPAP. NO HCANGES IN NEURO STATUS, PT ALERT, IS SLOW TO RESPOND WHEN FOLLOWING DIRECTIONS, RIGHT SIDE REMAINS WEAKER. PT SWALLOWED MEDS IN APPLE SAUCE W/O DIFFICULTY, OTHERWISE REMAINED NPO; ORAL CARE PROVIDED. NOYOLA DRNG NITIN URINE. PT REPOSITIONED Q2 T/O NIGHT. BED ALARM ON FOR SAFETY. PLAN TO AWAIT ST EVAL AND MOBILIZE W/PT.
--- NOTE | 2020-10-10 10:34 | NUR ---
BEDBATH AND LINEN CHANGE COMPLETED. SPEECH THERAPY IN TO SEE PT AT THIS TIME.
--- NOTE | 2020-10-10 17:53 | NUR ---
SHIFT SUMMARY PT HAS BEEN MUCH MORE ALERT TODAY, ORIENTED X3, FORGETFUL AT TIMES. THIS EVENING PT REPORTED TO DAUGHTER THAT SHE SAW A RAMAH NAVAJO CHAPTER IN HER ROOM AND HAS BEEN HAVING OTHER VISUAL HALLUCINATIONS AT TIMES SINCE HOSPITAL ADMIT. PT DENIES PAIN AT REST AND HAS BEEN ABLE TO PARTICIPATE IN THERAPY - ABLE TO SIT ON EDGE OF BED W/2X ASSIST. NOYOLA HAS BEEN IN PLACE, PATENT, OFF FLOOR. PT HAD SPEECH EVAL TODAY AND IS NOW ON [facility] SOFT DIET.
--- NOTE | 2020-10-11 06:24 | NUR ---
SHIFT SUMMARY: PT POD#5 FOR RT HIP NAILING. AQUACEL DRESSINGS C/D/I-SHADOWING OUTLINED. PT A&O, HOWEVER SLOW TO RESPOND. PAIN MANAGED WITH TYLENOL PER EMAR AND REPOSITIONING. PT ATTEMPTED TO USE BIPAP THROUOGHOUT NIGHT, HOWEVER C/O CLAUSTROPHOBIA AND UNABLE TO TOLERATE. O2 STABLE ON 2L VIA NC. LUNGS DIMINISHED THROUGHOUT WITH CRACKLES NOTED IN UPPER LOBES. PT DEMONSTRATED OF I/S AND ENC TO COUGH. PT TURNED SEVERAL TIMES THROUGHOUT SHIFT REQUIRING 2 MAX ASSIST. NOYOLA PATENT AND DRAINING DARK YELLOW URINE. MINIMAL PO INTAKE.
--- NOTE | 2020-10-11 11:37 | NUR ---
PT MORE ALERT THIS AM COMPARED TO YESTERDAY. PT ABLE TO WORK WITH OT AND SIT ON EDGE OF BED AND ASSIST COMBING OUT HER HAIR. PT HAD BM THIS MORNING. NOYOLA STILL IN PLACE. DISCUSSED CASE WITH WHO STATES SHE WILL REVIEW MEDICATIONS AND PUT IN ORDRES.
--- NOTE | 2020-10-11 11:39 | NUR ---
Pt resting in bed upon arrival. Pt denies pain but non verbal indicators suggest pain. Pt reports intermittent cramping in her right leg and foot. Reviewed plan of care and recommendations for SNF. Pt is agreeable with plan. Offered therapeutic listening and answered questions. Pt is agreeable for Palliative Care to F/U when family is visiting to discuss advanced care planning. Pt reports quitting smoking approximately 6 days ago and is agreeable for nicotine patch if appropriate. Received verbal permission from Pt to call spouse Corby and daughter Celia. Called and spoke with Pt's spouse Corby who reports plan to visit Pt this afternoon. Called and spoke with Pt's daughter Celia. Engaged in therapeutic discussion regarding advanced care planning. Gentle education regarding disease and trajectory of disease. Discussed the importance of routine conversations with Pt's PCP regarding disease process and the importance of developing multiple plans for the future. Listened as Celia reports contacting [employer] to start the process of caregiver assistance for both Pt and Pt's spouse. Celia reports Pt and spouse are struggling with their health and careneeds. Contined therapeutic listening and answered questions. Celia expresses appreciation of conversation. Spoke with Primary RN Kaila and discussed case. Pt may benefit from Nicotine Patch and Toradol for pain if appropriate. Palliative Care will F/U when spouse arrives.
--- NOTE | 2020-10-11 11:39 | NUR ---
PT TITRATED FROM 2L O2 TO 0.5-1L NC.
--- NOTE | 2020-10-11 16:23 | NUR ---
F/U visit this afternoon. Assisted PT Shekhar with Pt bed mobility. After Shekhar finishes working with Pt this RN remained behind. Engaged in therapeutic conversation regarding Advanced Care Planning. Pt's spouse Ray at bedside. Educated on Pt's COPD and trajectory of disease process. Discussed the importance of planning for the future and routine conversations with PCP. Discussed code status and educated on life sustaining treatment including risk factors and implications of CPR. Offered therapeutic listening and answered questions. Pt tends to close her eyes periodically throughout the visit. Pt's spouse appears slightly overwhelmed with information. Continued therapeutic listening. Pt and family express appreciation of visit. Palliative Care will remain available.
[2020-10-12 04:22] LABS: Hematocrit 30.6 % (33.0-51.0); Hemoglobin 10.3 g/dL (11.5-16.0); Mean Corpuscular HGB 33.2 pg (26.0-34.0); Mean Corpuscular HGB Conc 33.7 g/dL (31.5-36.5); Mean Corpuscular Volume 99 fL (80-100); Mean Platelet Volume 9.6 fL (9.1-12.4); Platelet Count 183 K/mm3 (150-400); RDW Coefficient Variation 12.8 % (11.7-14.2); RDW Standard Deviation 45.8 fL (35.1-46.3); White Blood Cell Count 5.52 K/mm3 (4.00-11.30)
[2020-10-12 04:45] LABS: Albumin, Blood 2.4 g/dL (3.4-5.0); Anion Gap 3 mmol/L (6-16); Blood Urea Nitrogen 9 mg/dL (8-24); Bun/Creatinine Ratio 23.4 (12.0-20.0); CO2, Blood 33 mmol/L (21-32); Calcium, Blood 8.6 mg/dL (8.5-10.1); Chloride, Blood 98 mmol/L (98-108); Creatinine, Blood 0.39 mg/dL (0.40-1.00); Glomerular Filtration Rate >60 (60-); Glucose, Blood 90 mg/dL (70-99); Phosphorus, Blood 2.7 mg/dL (2.5-4.9); Potassium, Blood 3.8 mmol/L (3.5-5.5); Sodium, Blood 134 mmol/L (136-145)
--- NOTE | 2020-10-12 05:27 | NUR ---
SHIFT SUMMARY: PT HAS BEEN A&O X4. PLEASANT AND COOPERATIVE THIS SHIFT. REPOSITIONED FOR COMFORT THROUGHOUT NIGHT. HALLUCINATING IN BEGINNING OF SHIFT AND REPORTS SEEING A MAN WITH A GREEN FACE AND RED HAIR. PT HAS NOT BEEN GIVEN ANY NARCOTIC PAIN MEDICATION THIS SHIFT. O2 REMAINS STABLE ON 2LO2 VIA NC. DENIES SOB. PT ABLE TO TOLERATE HS MEDS WHOLE IN APPLE SAUCE. NOYOLA DRAINING ORANGE COLERED URINE. PLAN FOR PT/OT.
--- NOTE | 2020-10-12 13:23 | NUR ---
MAGUI NARANJO NOTIFIED THAT PT WILL NEED A FOLLOW-UP APPOINTMENT WITH DR. SOSA AND REQUESTED THAT SNF IS NOTIFIED OF THE APPOINTMENT WHEN DC IS ARRANGED. FOLLOW-UP WILL BE September AT 0930.
--- NOTE | 2020-10-12 13:55 | NUR ---
Spiritual care visit conducted. Patient talks about the medical issues and the plan to go to a rehabilitation facility. She then talks about personal stories and issues. We explore sources of meaning and worth and I highlight patient's beautiful character traits, reinforce helpful attitudes and provide therapeutic listening and prayer. Patient responds well and displays evidence of catharsis and being encouraged in her belief system.
[2020-10-12 15:44] LABS: SARS-Cov-2 (COVID-19) PCR, MMC NEGATIVE (NEGATIVE)
--- NOTE | 2020-10-12 17:02 | NUR ---
REPORT CALLED TO NITIN AT [facility].
--- NOTE | 2020-10-12 17:54 | NUR ---
DISCHARGE PT LEFT IN W/C WITH [facility]. PT ALERT ORIENTED AND PLEASANT AT TIME OF DISCHARGE. PT ASSISTED WITH LIFT IN TO W/C.
== END 2020-10-12 17:57 | DRG 480 ==
LOC: ER 21:29 → ERHOLD 23:33 → SURS 23:33
PROVIDERS: Emergency Medicine; Internal Medicine; Orthopaedic Surgery; ADMIT Internal Medicine
PROC: 0QS634Z Reposition Right Upper Femur with Internal Fixation Device, Percutaneous Approach (ICD-10-PCS; principal; 2020-10-06 14:30)
DX: S72.141A Displaced intertrochanteric fracture of right femur, initial encounter for closed fracture (principal); J95.821 Acute postprocedural respiratory failure; G81.91 Hemiplegia, unspecified affecting right dominant side; S72.21XA Displaced subtrochanteric fracture of right femur, initial encounter for closed fracture; I10 Essential (primary) hypertension; F32.9 Major depressive disorder, single episode, unspecified; M19.90 Unspecified osteoarthritis, unspecified site; D45 Polycythemia vera; Z20.822 Contact with and (suspected) exposure to COVID-19; R47.81 Slurred speech; R29.810 Facial weakness; J44.9 Chronic obstructive pulmonary disease, unspecified; F03.90 Unspecified dementia, unspecified severity, without behavioral disturbance, psychotic disturbance, mood disturbance, and anxiety; I08.1 Rheumatic disorders of both mitral and tricuspid valves; Z90.89 Acquired absence of other organs; Z98.891 History of uterine scar from previous surgery; Z79.82 Long term (current) use of aspirin; Z79.899 Other long term (current) drug therapy; W07.XXXA Fall from chair, initial encounter; I65.21 Occlusion and stenosis of right carotid artery
CPT/HCPCS: 36415; 70450; 70496; 70498; 71045; 73502; 80048; 80053; 80069; 81001; 83735; 85025; 85027; 87086; 92526; 92610; 93005; 93010; 93306; 93880; 94640; 94660; 94664; 94667; 94762; 96374; 96375; 97110; 97112; 97116; 97162; 97167; 97530; 97535; 99285-25; A9270; C1713; C1769; J0360; J0690; J0696; J1100; J1650; J1885; J2405; J2704; J2710; J3010; J3370; J7030; J7120; Q9967; U0004

== ENCOUNTER 2023-06-05 04:24 | Inpatient (IN) | payer OTHER ==
[~2023-06-05] VITALS: Ht 167.6 cm; Wt 68.0 kg
[2023-06-05] VITALS (7 sets, daily range): BP systolic 111–201; BP diastolic 64–96
[~2023-06-05 04:24] MED LIST changes: +LOSA25 PO; +ONDA4ODT MM; +PLAVIX75 MG PO
[2023-06-05] MEDS ORDERED: Lidocaine 2% Jelly Uro-Jet UR ONE (04:45)
[2023-06-05] MEDS ORDERED: NS 1,000 ML IV SCH ×2 (04:50→06:00)
[2023-06-05] MEDS ORDERED: CefTRIAXone Sodium 1,000 MG in NS 50 ML IV ONE (04:50)
[2023-06-05] MEDS ORDERED: Tetanus and Diphtheria Toxoid 0.5 ML INJ IM ONE (04:50)
[2023-06-05] MEDS ORDERED: Fluconazole 100 MG Tab PO ONE (04:50)
[2023-06-05 05:11] LABS: Source, Urine Straight Cath
[2023-06-05 05:17] LABS: BASOPHILS ABSOLUTE AUTO 0.02 K/mm3 (0.00-0.23); BASOPHILS PERCENT AUTO 0 % (0-2); EOSINOPHILS ABSOLUTE AUTO 0.07 K/mm3 (0.00-0.68); EOSINOPHILS PERCENT AUTO 1 % (0-6); Hematocrit 50.9 % (33.0-51.0); Hemoglobin 16.8 g/dL (11.5-16.0); IMMATURE GRAN ABSOLUTE AUTO 0.03 K/mm3 (0.00-0.10); IMMATURE GRAN PERCENT AUTO 1 % (0-1); LYMPHOCYTES ABSOLUTE AUTO 0.96 K/mm3 (0.84-5.20); LYMPHOCYTES PERCENT AUTO 16 % (21-46); MONOCYTES ABSOLUTE AUTO 0.39 K/mm3 (0.16-1.47); MONOCYTES PERCENT AUTO 7 % (4-13); Mean Corpuscular HGB 31.6 pg (26.0-34.0); Mean Corpuscular Volume 96 fL (80-100); Mean Platelet Volume 9.6 fL (9.1-12.4); NEUTROPHILS ABSOLUTE AUTO 4.39 K/mm3 (1.96-9.15); NEUTROPHILS PERCENT AUTO 75 % (41-73); Platelet Count 156 K/mm3 (150-400); RDW Coefficient Variation 13.3 % (11.7-14.2); RDW Standard Deviation 47.5 fL (35.1-46.3); Red Blood Cell Count 5.32 M/mm3 (3.80-5.20); White Blood Cell Count 5.86 K/mm3 (4.00-11.30)
[2023-06-05 05:29] LABS: Appearance, Urine Hazy (Clear); Bilirubin, Urine Neg (Neg); Blood, Urine 4+ (Neg); Color, Urine Yellow (P-Yellow); Glucose Qualitative, Urine Neg (Neg); Ketones, Urine 1+ (Neg); Leukocyte Esterase, Urine 1+ (Neg); Nitrite, Urine Pos (Neg); Protein, Urine 1+ (Neg); Urobilinogen, Urine 3+ (Normal)
[2023-06-05] MEDS ORDERED: Vancomycin HCL 1,500 MG in NS 250 ML IV ONE (05:35)
[2023-06-05 05:39] LABS: Albumin, Blood 3.4 g/dL (3.4-5.0); Albumin/Globulin Ratio 0.8 (0.8-1.8); Bilirubin, Total 0.8 mg/dL (0.1-1.0); Bun/Creatinine Ratio 36.4 (12.0-20.0); Calcium, Blood 9.7 mg/dL (8.5-10.1); Creatinine, Blood 0.71 mg/dL (0.40-1.00); Potassium, Blood 3.8 mmol/L (3.5-5.5); Total Protein, Blood 7.4 g/dL (6.4-8.2); Uric Acid, Blood 3.5 mg/dL (2.6-6.0)
[2023-06-05 05:40] LABS: Bacteria Many /hpf; Squamous Epithelial Cells Few /hpf (Few); White Blood Cells, Urine 0-2 /hpf (0-5)
[2023-06-05] MEDS ORDERED: FLU VACC QS2023-24(6MOS UP)/PF 60 MCG/0.5 ML SYRINGE IM ONE (05:40)
[2023-06-05] MEDS ORDERED: Ondansetron HCl 2 MG / ML 2ML Vial IV PRN (05:40)
[2023-06-05] MEDS ORDERED: HydrALAZINE HCl 20 MG / ML 1ML Vial IV PRN (05:40)
[2023-06-05] MEDS ORDERED: CeFAZolin Sodium 2,000 MG in NS 50 ML IV SCH (06:30)
[2023-06-05] MEDS ORDERED: Clopidogrel Bisulfate 75 MG Tab PO SCH (09:00)
[2023-06-05] MEDS ORDERED: Citalopram Hydrobromide 10 MG TAB PO SCH (09:00)
[2023-06-05] MEDS ORDERED: Losartan Potassium 25 MG Tab PO SCH (09:00)
[2023-06-05] MEDS ORDERED: Aspirin 81 MG Chew PO SCH (09:00)
[2023-06-05] MEDS ORDERED: Lactobacil 2-S.Thermo-Bifido 1 1 Cap PO SCH (09:00)
--- NOTE | 2023-06-05 12:14 | NUR ---
ADMIT NOTE PT ARRIVED TO PCU FROM ED VIA ED STRETCHER AT APPROX 0815. PT WAS SLID BY 4 STAFF FROM ED STRETCHER TO PCU BED. PT A&OX2, FORGETFUL, POOR HISTORIAN. ABLE TO MAKE NEEDS KNOWN. SP02>90% ON RA. HTN NOTED, SEE VITALS. PRN HYDRALAZINE GIVEN PER EMAR. PT PLACED ON TELEMETRY PRIOR TO HYDRALAZINE GIVEN, NSR, HR 70'S. PT REMAINS HYPERTENSIVE. CALL PLACED TO MD FIGUEROA. MD FIGUEROA W/ ORDERS FOR [place] X1 NOW AND INCREASE DAILY DOSE, SEE EMAR. PT WITH PURWIK TO LIS. ABD/ELISA AREA EXCORIATED, SEE PICTURES IN CHART. FLUIDS INFUSING PER EMAR. PT'S CURRENTLY IN ICU. CROSSING WATCHMAN IN PTS ROOM TO UPDATE . THIS RN AND CROSSING WATCHMAN COORDINATED PHONE CALL BETWEEN PATIENTS. PT CURRENTLY WORKING IN ROOM WITH PHYSICAL THERAPY. CALL LIGHT IN REACH.
[2023-06-05] MEDS ORDERED: Losartan Potassium 25 MG Tab PO ONE (12:15)
--- NOTE | 2023-06-05 17:36 | NUR ---
"Spiritual Care | Pt./nurse request Pt. is awake in bed and welcomes my visit. Pt. is pleasant but unsettled about her who is also currently admitted as a Pt. in this hospital. Facilitate a life review, and consider matters of carrillo and belief. Pt. displayed evidence of graciousness and hope. Through theraputic listening talk through the nature of his and her hospitlaizations. Facilitated a life review and prayed for both the Pt. and her spouse. Pt. verbalized gratitude for the spiritual care visit."
--- NOTE | 2023-06-05 17:53 | NUR ---
SHIFT SUMMARY NO ACUTE CHANGES SINCE ADMIT, SEE PREVIOUS NOTE. VSS. DENIES PAIN. PURWIK TO LIS. DAUGHTER, AURY, IN ROOM THIS EVENING, UPDATED. OTHER DAUGHTER FROM [place] ON HER WAY DOWN. PER [place] DAUGHTER, SHE IS WANTING TO SIT DOWN AND HELP MOM MAKE AN ADVANCED DIRECTIVE. PT'S SON TALKING TO PT ON PHONE CURRENTLY. PT SITTING UP IN BED, NOT IMPRESSED WITH DINNER. CALL LIGHT IN REACH.
[2023-06-05] MEDS ORDERED: Famotidine 20 MG Tab PO SCH (21:00)
[2023-06-06 00:22] VITALS: BP 153/77
[2023-06-06] MEDS ORDERED: NS 250 ML IV PRN (02:15)
[2023-06-06 03:57] LABS: BASOPHILS ABSOLUTE AUTO 0.02 K/mm3 (0.00-0.23); BASOPHILS PERCENT AUTO 1 % (0-2); EOSINOPHILS ABSOLUTE AUTO 0.11 K/mm3 (0.00-0.68); EOSINOPHILS PERCENT AUTO 3 % (0-6); Hematocrit 41.8 % (33.0-51.0); Hemoglobin 13.8 g/dL (11.5-16.0); IMMATURE GRAN ABSOLUTE AUTO 0.02 K/mm3 (0.00-0.10); IMMATURE GRAN PERCENT AUTO 1 % (0-1); LYMPHOCYTES ABSOLUTE AUTO 0.91 K/mm3 (0.84-5.20); LYMPHOCYTES PERCENT AUTO 24 % (21-46); MONOCYTES ABSOLUTE AUTO 0.29 K/mm3 (0.16-1.47); MONOCYTES PERCENT AUTO 8 % (4-13); Mean Corpuscular Volume 94 fL (80-100); NEUTROPHILS PERCENT AUTO 65 % (41-73); Platelet Count 145 K/mm3 (150-400); RDW Coefficient Variation 13.4 % (11.7-14.2); RDW Standard Deviation 46.1 fL (35.1-46.3); Red Blood Cell Count 4.45 M/mm3 (3.80-5.20); White Blood Cell Count 3.85 K/mm3 (4.00-11.30)
[2023-06-06 04:19] LABS: Albumin, Blood 2.7 g/dL (3.4-5.0); Albumin/Globulin Ratio 0.9 (0.8-1.8); Bilirubin, Total 0.5 mg/dL (0.1-1.0); Bun/Creatinine Ratio 31.1 (12.0-20.0); Calcium, Blood 8.6 mg/dL (8.5-10.1); Creatinine, Blood 0.55 mg/dL (0.40-1.00); Potassium, Blood 3.5 mmol/L (3.5-5.5); Total Protein, Blood 5.7 g/dL (6.4-8.2)
[2023-06-06 04:27] VITALS: BP 172/85
[2023-06-06 06:29] VITALS: BP 137/71
--- NOTE | 2023-06-06 07:25 | NUR ---
SUMMARY PT WITH SYSTOLIC UP TO 170'S THIS SHIFT. I MED WITH HYDRALAZINE WITH GOOD RESPONSE OF SYSTOLIC DOWN TO 130'S.
[2023-06-06 07:52] VITALS: BP 151/85
[2023-06-06] MEDS ORDERED: Losartan Potassium 25 MG Tab PO SCH (09:00)
[2023-06-06] MEDS ORDERED: Enoxaparin 40 MG/0.4 ML SYR SC SCH (09:00)
[2023-06-06] MEDS ORDERED: CEPHALEXIN500 M1 PO (13:36)
[2023-06-06] MEDS ORDERED: MICONAZOLE NITR85 GM TOP (13:40)
--- NOTE | 2023-06-06 15:31 | NUR ---
DISCHARGE SUMMARY PT A&OX3, ABLE TO MAKE NEEDS KNOWN. DISCHARGE MEDICATION REVIEWED W/ PATIENT, FAXED TO [facility]. DISCHARGE ORDERS REVIEWED, PT VERBALIZED. EDUCATION GIVEN ON NEW MEDS, PERSONAL HYGIENE. PT DISCHARGING WITH HOME HEALTH. IV REMOVED, TELEMETRY REMOVED. DAUGHTER IN ROOM AFTER SPEAKING W/ CARE MANAGEMENT. PT WHEELED TO PRIVATE VEHICLE.
[2023-06-06] MEDS ORDERED: Miconazole Nitrate 2% 85 GM PWD TOP SCH (21:00)
== END 2023-06-06 15:27 | disposition home health service (06) | DRG 758 ==
LOC: ER 04:24 → ERHOLD 05:36 → PCU 08:41
PROVIDERS: Emergency Medicine; Student in an Organized Health Care Education/Training Program; ADMIT Internal Medicine
PROC: 3E0234Z Introduction of Serum, Toxoid and Vaccine into Muscle, Percutaneous Approach (ICD-10-PCS; principal; 2023-06-05)
DX: N76.2 Acute vulvitis (principal); L03.115 Cellulitis of right lower limb; L03.116 Cellulitis of left lower limb; L03.314 Cellulitis of groin; I10 Essential (primary) hypertension; F32.A Depression, unspecified; Z23 Encounter for immunization; F03.90 Unspecified dementia, unspecified severity, without behavioral disturbance, psychotic disturbance, mood disturbance, and anxiety; Z90.89 Acquired absence of other organs; Z98.891 History of uterine scar from previous surgery; Z87.891 Personal history of nicotine dependence; Z88.5 Allergy status to narcotic agent
CPT/HCPCS: 36415; 74177; 80053; 81001; 83605; 84550; 85025; 87077; 87086; 87186; 90471; 90714; 96365-59; 96375; 96376; 97116; 97129; 97161; 97165; 97530; 97535; 99285-25; A9270; J0360; J0690; J0696; J3370; J7030; J7050; Q9967

== ENCOUNTER 2023-06-21 23:18 | Emergency (ER) | payer OTHER ==
[~2023-06-21] VITALS: Ht 162.6 cm; Wt 72.6 kg
[~2023-06-21 23:18] MED LIST changes: +CEPHALEXIN500 M1 PO; +MICONAZOLE NITR85 GM TOP
[2023-06-21 23:58] LABS: BASOPHILS ABSOLUTE AUTO 0.02 K/mm3 (0.00-0.23); BASOPHILS PERCENT AUTO 1 % (0-2); EOSINOPHILS ABSOLUTE AUTO 0.16 K/mm3 (0.00-0.68); EOSINOPHILS PERCENT AUTO 5 % (0-6); Hematocrit 48.7 % (33.0-51.0); Hemoglobin 15.9 g/dL (11.5-16.0); IMMATURE GRAN ABSOLUTE AUTO 0.01 K/mm3 (0.00-0.10); IMMATURE GRAN PERCENT AUTO 0 % (0-1); LYMPHOCYTES ABSOLUTE AUTO 1.11 K/mm3 (0.84-5.20); LYMPHOCYTES PERCENT AUTO 32 % (21-46); MONOCYTES ABSOLUTE AUTO 0.23 K/mm3 (0.16-1.47); MONOCYTES PERCENT AUTO 7 % (4-13); Mean Corpuscular HGB 31.5 pg (26.0-34.0); Mean Corpuscular HGB Conc 32.6 g/dL (31.5-36.5); Mean Corpuscular Volume 96 fL (80-100); Mean Platelet Volume 9.8 fL (9.1-12.4); NEUTROPHILS PERCENT AUTO 55 % (41-73); Platelet Count 128 K/mm3 (150-400); RDW Coefficient Variation 14.3 % (11.7-14.2); Red Blood Cell Count 5.05 M/mm3 (3.80-5.20); White Blood Cell Count 3.43 K/mm3 (4.00-11.30)
[2023-06-22 00:19] LABS: Albumin, Blood 3.5 g/dL (3.4-5.0); Bilirubin, Total 0.7 mg/dL (0.1-1.0); Bun/Creatinine Ratio 33.8 (12.0-20.0); Calcium, Blood 9.4 mg/dL (8.5-10.1); Creatinine, Blood 0.56 mg/dL (0.40-1.00); Globulin, Blood 3.5 g/dL (2.2-4.0); Potassium, Blood 4.2 mmol/L (3.5-5.5)
[2023-06-22 02:00] VITALS: BP 188/97
[2023-06-22] MEDS ORDERED: RX Prepack Albuterol 1 PREPACK/6.7 GM INH UD ONE (02:00)
== END 2023-06-22 02:00 | disposition home or self-care (01) ==
LOC: ER 23:18
PROVIDERS: Student in an Organized Health Care Education/Training Program
DX: R06.02 Shortness of breath (principal); R53.1 Weakness; D72.819 Decreased white blood cell count, unspecified; F17.210 Nicotine dependence, cigarettes, uncomplicated; I10 Essential (primary) hypertension; F32.A Depression, unspecified; Z79.899 Other long term (current) drug therapy; Z88.5 Allergy status to narcotic agent; Z63.4 Disappearance and death of family member
CPT/HCPCS: 71045; 80053; 84484; 85025; 93005; 93010; 99285-25

== ENCOUNTER 2024-04-16 23:19 | Emergency (ER) | payer OTHER ==
[~2024-04-16] VITALS: Ht 165.1 cm; Wt 59.0 kg
[2024-04-16] MEDS ORDERED: Loperamide HCl 2 MG Cap PO ONE (23:25)
[2024-04-17 00:08] LABS: BASOPHILS ABSOLUTE AUTO 0.03 K/mm3 (0.00-0.23); BASOPHILS PERCENT AUTO 1 % (0-2); EOSINOPHILS ABSOLUTE AUTO 0.15 K/mm3 (0.00-0.68); EOSINOPHILS PERCENT AUTO 3 % (0-6); Hemoglobin 16.4 g/dL (11.5-16.0); IMMATURE GRAN ABSOLUTE AUTO 0.02 K/mm3 (0.00-0.10); IMMATURE GRAN PERCENT AUTO 0 % (0-1); LYMPHOCYTES ABSOLUTE AUTO 1.17 K/mm3 (0.84-5.20); LYMPHOCYTES PERCENT AUTO 26 % (21-46); MONOCYTES ABSOLUTE AUTO 0.31 K/mm3 (0.16-1.47); MONOCYTES PERCENT AUTO 7 % (4-13); Mean Corpuscular HGB 33.1 pg (26.0-34.0); Mean Corpuscular HGB Conc 32.8 g/dL (31.5-36.5); Mean Corpuscular Volume 101 fL (80-100); NEUTROPHILS ABSOLUTE AUTO 2.86 K/mm3 (1.96-9.15); NEUTROPHILS PERCENT AUTO 63 % (41-73); Platelet Count 144 K/mm3 (150-400); RDW Coefficient Variation 13.4 % (11.7-14.2); RDW Standard Deviation 50.5 fL (35.1-46.3); Red Blood Cell Count 4.96 M/mm3 (3.80-5.20); White Blood Cell Count 4.54 K/mm3 (4.00-11.30)
[2024-04-17 00:38] LABS: Albumin, Blood 3.2 g/dL (3.4-5.0); Albumin/Globulin Ratio 0.9 (0.8-1.8); Bilirubin, Total 0.5 mg/dL (0.1-1.0); Bun/Creatinine Ratio 52.7 (12.0-20.0); Calcium, Blood 9.2 mg/dL (8.5-10.1); Creatinine, Blood 0.57 mg/dL (0.40-1.00); Globulin, Blood 3.7 g/dL (2.2-4.0); Magnesium, Blood 2.3 mg/dL (1.6-2.4); Potassium, Blood 4.3 mmol/L (3.5-5.5); Total Protein, Blood 6.9 g/dL (6.4-8.2)
[2024-04-17 03:25] VITALS: BP 164/99
== END 2024-04-17 04:45 | disposition home or self-care (01) ==
LOC: ER 23:19
PROVIDERS: Emergency Medicine
DX: R19.7 Diarrhea, unspecified (principal); I10 Essential (primary) hypertension; Z79.899 Other long term (current) drug therapy; Z88.5 Allergy status to narcotic agent
CPT/HCPCS: 80053; 83605; 83735; 85025; 99284; A9270